=== PATIENT | female | born 1995 | race Two or more races ===

== ENCOUNTER → 2016-09-08 | Outpatient (CLI) | payer OTHER ==
--- NOTE | 2016-09-09 17:58 | SLEEP ---
DATE OF STUDY: 09/08/2016 ATTENDING PHYSICIAN: Dr. Shabbir Handley. The patient is a 20-year-old who weighs 235 pounds with a BMI of 41. Stamford score was 15. Home sleep study was performed by [facility]. The total recording time was 597 minutes. During the night study, the patient had no central apneas. No mixed apneas or hypopneas. The patient had 61 obstructive apneas. The patient's apnea-hypopnea index was 6 per hour and supine index 6 per hour. Review of nocturnal oximetry study revealed that 8 minutes were spent in oxygen saturation less than 90% with the lowest of 75%. Mean heart rate was 81 beats per minute. IMPRESSION: 1. Mild sleep apnea-hypopnea syndrome with an apnea-hypopnea index of 6 per hour. 2. Mild nocturnal hypoxia secondary to obstructive sleep apnea. RECOMMENDATIONS: 1. The patient is clinically symptomatic with an Stamford score of 15. Even though the patient has mild sleep apnea, we would recommend treating the patient's sleep apnea with either an oral appliance or a trial of CPAP titration. 2. Once the patient undergoes CPAP titration, then follow up in 4-6 weeks to assess compliance with CPAP and to document clinical improvement. 3. Weight loss is strongly advised. 4. Avoid [employer] depressants. 5. Caution regarding driving until the patient's symptoms have resolved with the above recommendation. TOÑITO NOVAK MD DR: MIR/celine JOB#: [id number] / [id number] DORI
== END | disposition home or self-care (01) ==
LOC: RT 05:46
PROVIDERS: ATTEND Family Medicine
DX: G47.19 Other hypersomnia (principal)
CPT/HCPCS: G0399